=== PATIENT | male | born 1960 | race Caucasian/White ===

== ENCOUNTER 2023-03-30 06:34 | Day surgery (SDC) | payer BC ==
[~2023-03-30 06:34] MED LIST: Dextrose 5%-0.45% NaCl 1,000 ML IV SCH
[2023-03-30] MEDS ORDERED: Midazolam 1 MG/ML 2 ML SDV ONE (07:13)
[2023-03-30] MEDS ORDERED: fentaNYL 100 MCG/2 ML SDV ONE (07:13)
[2023-03-30] MEDS: Dextrose 5%-0.45% NaCl 1,000 ML IV SCH (07:15)
[2023-03-30] MEDS: fentaNYL 100 MCG/2 ML SDV IV ONE ×2 (08:19→08:20)
[2023-03-30] MEDS: Midazolam 1 MG/ML 2 ML SDV IV ONE ×6 (08:20→08:28)
== END 2023-03-30 09:48 | disposition home or self-care (01) ==
LOC: DL.ENDO 06:34 → MERGE 07:30 → DL.ENDO 09:48
PROVIDERS: ATTEND Internal Medicine Gastroenterology
DX: Z12.11 Encounter for screening for malignant neoplasm of colon (principal); F32.A Depression, unspecified; E66.01 Morbid (severe) obesity due to excess calories; E79.0 Hyperuricemia without signs of inflammatory arthritis and tophaceous disease; Z68.36 Body mass index [BMI] 36.0-36.9, adult; Z79.899 Other long term (current) drug therapy; Z98.890 Other specified postprocedural states
CPT/HCPCS: 45378; J2250; J3010; J7042

== ENCOUNTER 2024-01-25 09:35 | Emergency (ER) | payer BC ==
[~2024-01-25 09:35] MED LIST changes: -Dextrose 5%-0.45% NaCl 1,000 ML IV SCH; +Sodium Chloride 0.9% 10 ML Syringe FLUSH PRN
[2024-01-25 09:44] LABS: BASOPHILS PERCENT AUTO 0.7 % (0.0-1.0); HEMATOCRIT 40.6 % (40.0-54.0); HEMOGLOBIN 13.6 g/dL (14.0-18.0); LYMPHOCYTES PERCENT AUTO 25.4 % (20.5-50.1); MEAN CORPUSCULAR HEMOGLOBIN 31.8 pg (27.0-34.0); MEAN CORPUSCULAR HGB CONC 33.5 g/dL (33.0-35.0); MEAN CORPUSCULAR VOLUME 94.9 fL (80-100); MONOCYTES PERCENT AUTO 8.7 % (2-8); NEUTROPHILS PERCENT AUTO 59.2 % (42.2-75.2); PLATELET COUNT,PLT 199 10^3/uL (150-450); RED BLOOD CELL COUNT 4.28 10^6/uL (4.6-6.2)
[2024-01-25 10:04] LABS: B-TYPE NATRIURETIC PEPTIDE,BNP 9 pg/ml (0-100)
[2024-01-25 10:06] LABS: A/G RATIO 1.2; ALANINE AMINOTRANSFERASE,ALT 22 U/L (16-63); ALBUMIN 3.6 g/dL (3.4-5.0); ALKALINE PHOSPHATASE 48 U/L (46-116); ANION GAP 14.7 mEq/L (7-13); ASPARTATE AMNIOTRANSFERASE,AST 17 U/L (15-37); BILIRUBIN TOTAL 0.4 mg/dL (0.2-1.0); BLOOD UREA NITROGEN,BUN 15 mg/dL (7-18); BUN/CREATININE RATIO 12.6 (No establ ref range); CALCIUM 8.7 mg/dL (8.5-10.1); CARBON DIOXIDE,CO2 26 mmol/L (21-32); CHLORIDE,CL 105 mmol/L (98-107); CREATINE KINASE,CK 121 U/L (39-308); CREATININE 1.19 mg/dL (0.70-1.30); EST CRCL DRUG DOSING (CG) 71.55 mL/min; GLUCOSE RANDOM 133 mg/dL (70-99); LIPASE 86 U/L (16-77); MAGNESIUM 1.8 mg/dL (1.8-2.4); POTASSIUM,K 3.7 mmol/L (3.5-5.1); PROTEIN TOTAL,TP 6.7 g/dL (6.4-8.2); SODIUM,NA 142 mmol/L (136-145)
[2024-01-25 10:08] LABS: ESTIMATED GFR 70 mL/min (>=60)
[2024-01-25 10:15] LABS: PROTHROMBIN TIME 10.1 SEC (9.0-12.0)
[2024-01-25 10:46] LABS: PTT,PARTIAL THROMBOPLSTIN TIME 17.6 SEC (22.0-34.0)
== END 2024-01-25 13:15 | disposition home or self-care (01) ==
LOC: DL.ED 09:35
DX: R07.89 Other chest pain (principal); M19.90 Unspecified osteoarthritis, unspecified site; Z86.16 Personal history of COVID-19; Z90.89 Acquired absence of other organs; Z79.82 Long term (current) use of aspirin; Z79.899 Other long term (current) drug therapy
CPT/HCPCS: 36415; 71045; 71046; 80053; 82550; 83690; 83735; 83880; 84484; 85025; 85379; 85610; 85730; 93005; 99285